=== PATIENT | female | born 1970 | race Caucasian/White ===

== ENCOUNTER → 2016-09-25 | Day surgery (SDC) | payer OTHER ==
[~2016-09-25] VITALS: Ht 157.5 cm; Wt 72.6 kg
--- NOTE | 2016-09-29 14:05 | Operative Report ---
Operative/Inv Procedure Report Surgery Date: 09/25/16 Name of Procedure: Diagnostic laparoscopy Pre-Operative Diagnosis: Pelvic pain Post-Operative Diagnosis: Fibroid adenomyosis of the uterus normal tubes and ovaries bilaterally Estimated Blood Loss: scant Surgeon/Apron Cleaner: LUIZ MONDRAGON,LESLEY White Anesthesia: general endotracheal tube Operative/Procedure Note Note: PROCEDURE NOTE PATIENT WAS TAKEN THE OPERATING ROOM PLACED ON POSITION AFTER ADEQUATE ANESTHESIA PATIENT PLACED IN DORSOLITHOTOMY POSITION THE VAGINA FROM DORSAL FASHION BLADDER WAS CATHETERIZED EXAMINATION the Guerra cannula was placed into the cervix in usual fashion surgeon regowned and gloved a stab incision was made bellybutton there is medial to allow for insufflation the abdomen was insufflated possibly 2-1/2 L CO2 to a vertex also which point peritoneal a 10 mm trocar was inserted the umbilicus sheath remained placed through that sheath laparoscope placed under direct visualization a 5 mm port was placed to bring minutes of pubis in midline through that port a blunt port was placed fluid was obtained peritoneal washings performed surgeons down traction patient tolerated that well at this point peritoneal washings all instruments removed from the abdomen under direct visualization after pictures were taken. Were obtained maximum CO2 was removed from the abdomen the patient tolerated this well. At this point the fascia was reapproximated 0 skin was reapproximated using 30 Marcaine was injected underneath skin at the end the case for bandages were applied to the area patient tolerated that well she was awakened from anesthesia after all instruments removed from the vagina and returned spine position and transported recovery room awake alert counts correct thank you
== END ==
LOC: STS 01:29
DX: D25.9 Leiomyoma of uterus, unspecified (principal); R10.2 Pelvic and perineal pain
CPT/HCPCS: 81025; 88305; J0131; J0694; J2250